=== PATIENT | female | born 1995 | race Caucasian/White ===

== ENCOUNTER → 2019-07-28 | Outpatient (CLI) | payer OTHER ==
--- NOTE | 2019-07-29 09:03 | REP ---
REASON FOR EXAM: Cough. There are no priors for comparison. FINDINGS: The superior mediastinal structures are midline. The cardiac silhouette is unremarkable in size, shape, and position. The diaphragmatic surfaces of the lungs are regular, and the costophrenic angles are clear. The pulmonary vasquez are clear. The imaged osseous structures are intact. IMPRESSION: There is no acute cardiopulmonary disease. Electronically Signed by Jam Cartagena DO 07/31/2019 10:53 A
== END ==
LOC: M WUC 14:46
PROVIDERS: ATTEND Physician Assistant
DX: R05 Cough (principal)
CPT/HCPCS: 71046; U0003